=== PATIENT | male | born 2000 | race African-American/Black ===

== ENCOUNTER 2021-08-19 21:21 | Emergency (ER) | payer OTHER ==
[~2021-08-19] VITALS: Ht 180.3 cm; Wt 90.0 kg
[2021-08-19 22:31] LABS: BASOPHILS % 0.4 % (0.0-2.0); EOSINOPHILS % 0.7 % (0.0-5.0); HEMATOCRIT. 43.7 % (42.0-52.0); HEMOGLOBIN. 14.5 g/dL (14.0-18.0); LYMPHOCYTES % 53.6 % (20.0-50.0); MEAN CORPUSCULAR HEMOGLOBIN 28.5 pg (28.0-32.0); MEAN CORPUSCULAR VOLUME 85.9 fL (80.0-94.0); MEAN PLATELET VOLUME 8.1 fl (7.4-10.4); MONOCYTES % 9.2 % (2.0-8.0); NEUTROPHILS % 36.1 % (40.0-76.0); PLATELET 254 x1000/uL (130-400); RED BLOOD CELL COUNT 5.09 mill/uL (4.7-6.1); RED CELL DISTRIBUTION WIDTH 13.2 % (11.6-14.6)
[2021-08-19 22:37] LABS: CHLORIDE 108 mEq/L (98-107)
[2021-08-20 02:00] VITALS: BP 128/88
== END 2021-08-20 02:15 | disposition home or self-care (01) ==
LOC: ER 21:21
DX: R20.2 Paresthesia of skin (principal); J45.909 Unspecified asthma, uncomplicated
CPT/HCPCS: 36415; 80053; 85025; 99284

== ENCOUNTER 2025-10-03 13:48 | Emergency (ER) | payer MEDICAID ==
[~2025-10-03] VITALS: Ht 182.9 cm; Wt 95.0 kg
[2025-10-03 14:05] VITALS: BP 139/85; PULSE 96; RESP 18; TEMP 36.7; O2SAT 100
[2025-10-03 16:32] LABS: BASOPHILS % 0.3 % (0.0-2.0); EOSINOPHILS % 0.2 % (0.0-5.0); HEMATOCRIT. 48.2 % (42.0-52.0); HEMOGLOBIN. 15.9 g/dL (14.0-18.0); LYMPHOCYTES % 32.0 % (20.0-50.0); MEAN PLATELET VOLUME 8.4 fl (7.4-10.4); MONOCYTES % 9.2 % (2.0-8.0); NEUTROPHILS % 58.3 % (40.0-76.0); PLATELET 301 x1000/uL (130-400); RED BLOOD CELL COUNT 5.59 mill/uL (4.7-6.1); RED CELL DISTRIBUTION WIDTH 13.7 % (11.6-14.6)
[2025-10-03 16:43] LABS: INR 1.1
[2025-10-03 16:46] LABS: CREATININE 1.0 mg/dL (0.6-1.3)
[2025-10-03 16:47] LABS: UREA NITROGEN BLOOD < 5 mg/dL (9-23)
[2025-10-03 17:06] LABS: *AMPHETAMINES SCREEN URINE NEGATIVE (NEGATIVE); *BARBITURATES SCREEN URINE NEGATIVE (NEGATIVE); *BENZODIAZEPINES SCREEN URINE NEGATIVE (NEGATIVE); *COCAINE SCREEN URINE NEGATIVE (NEGATIVE); CANNABINOID URINE SCREEN NEGATIVE (NEGATIVE); ECSTASY MDMA SCREEN URINE NEGATIVE (NEGATIVE); METHADONE URINE SCREEN NEGATIVE (NEGATIVE); OPIATES URINE SCREEN NEGATIVE (NEGATIVE); PHENCYCLIDINE URINE SCREEN NEGATIVE (NEGATIVE)
[2025-10-03 17:52] LABS: VITAMIN B12 SERUM 251 pg/mL (211-911)
== END 2025-10-03 18:15 | disposition left against medical advice (07) ==
LOC: ER 13:48 → EDBEDREQ 17:22 → EDBEDREQTM 17:22 → ER 18:15 → CMPBEDREQ 10-05 08:26
DX: R20.2 Paresthesia of skin (principal); I10 Essential (primary) hypertension; J45.909 Unspecified asthma, uncomplicated; Z79.899 Other long term (current) drug therapy; Z98.890 Other specified postprocedural states
CPT/HCPCS: 36415; 80048; 80305; 80320; 82607; 85025; 99283; G0480